=== PATIENT | female | born 1985 | race Caucasian/White ===

== ENCOUNTER 2016-04-23 09:09 | Emergency (ER) | payer OTHER ==
[2016-04-23 09:36] VITALS: BP 150/71
[2016-04-23] MEDS ORDERED: Ketorolac INJ* 30 MG/ML 1 ML VIAL IM ONE (10:01)
--- NOTE | 2016-04-23 10:06 | UC ---
Ear Complaint HPI - HPI Summary HPI Summary: Pt has worsening R ear pain for several days, in the last 1-2 days feels like R ear is filling with fluid and has nasal congestion. Pain radiates into (or from ) jaw and into R neck, R throat, and R anterior lymph node. Had fever last night 101+. Pt also has impacted wisdom teeth and they have been giving her pain , not sure if this pain is from her teeth. 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 - History of Current Complaint Chief Complaint: UCDentalProblem Stated Complaint: EAR PAIN Time Seen by Provider: 04/23/16 09:48 Hx Obtained From: Patient Hx Last Menstrual Period: 04/10/16 ?: No Onset/Duration: Gradual Onset, Lasting Days Severity Initially: Mild Severity Currently: Moderate Alleviating Factors: Nothing Associated Signs/Symptoms: Positive: URI Symptoms - Allergies/Home Medications Allergies/Adverse Reactions: Allergies Allergy/AdvReac Type Severity Reaction Status Date / Time No Known Allergies Allergy Verified 07/13/15 11:43 PMH/Surg Hx/FS Hx/Imm Hx Endocrine History Of: Denies: Diabetes, Thyroid Disease Cardiovascular History Of: Denies: Cardiac Disorders, Hypertension Respiratory History Of: Reports: Asthma Denies: COPD GI/ History Of: Denies: Ulcer Neurological History Of: Reports: Migraine - Surgical History Surgical History: None - Family History Known Family History: Positive: Diabetes - Social History Occupation: Employed Part-time Alcohol Use: Rare Substance Use Type: None Smoking Status (MU): Light Every Day Tobacco Smoker Type: Cigarettes Amount Used/How Often: 3-4 CIG/DAY Length of Time of Smoking/Using Tobacco: 15 years Have You Smoked in the Last Year: Yes Household Exposure Type: Cigarettes Review of Systems Constitutional: Fever Skin: Negative Eyes: Negative ENT: Dental Pain, Sore Throat, Ear Ache, Nasal Discharge Respiratory: Negative Cardiovascular: Negative Gastrointestinal: Negative Genitourinary: Negative Motor: Negative Neurovascular: Negative Musculoskeletal: Negative Neurological: Negative Psychological: Negative All Other Systems Reviewed And Are Negative: Yes Physical Exam Triage Information Reviewed: Yes Appearance: Well-Nourished, Pain Distress - mod Vital Signs: Initial Vital Signs Temp 98.8 F 04/23/16 09:31 Pulse 88 04/23/16 09:31 Resp 18 04/23/16 09:31 BP 150/71 04/23/16 09:31 Pulse Ox 100 04/23/16 09:31 Vital Signs Reviewed: Yes Eye Exam: Normal Eyes: Positive: Conjunctiva Clear ENT: Positive: Hearing grossly normal, Pharynx normal, Nasal congestion, Nasal drainage - pt is tearful, TMs normal - TMs flat, carrasquillo, intact bilat, LM present , Tonsillar swelling. Negative: TM bulging, TM dull, TM red, Tonsillar exudate Dental: Positive: Percussion Tenderness @ - #17 and #32 Neck: Positive: Supple, Tenderness @ - R tonsillar lymph node Respiratory Exam: Normal Respiratory: Positive: Chest non-tender, Lungs clear, Normal breath sounds, No respiratory distress, No accessory muscle use Cardiovascular Exam: Normal Cardiovascular: Positive: RRR, No Murmur Musculoskeletal Exam: Normal Neurological Exam: Normal Psychological Exam: Other - upset, in pain Skin Exam: Normal Ear Complaint Course/Dx - Differential Dx/Diagnosis Provider Diagnoses: tooth #32 pain. URI, likely viral Discharge - Discharge Plan Condition: Stable Disposition: HOME Prescriptions: ALPRAZolam TAB* [Xanax TAB*] 0.5 mg PO ONCE #3 tab MDD 1 HYDROcodone/ACETAMIN 5-325 MG* [Charlotte 5-325 TAB*] 1 - 2 tab PO Q8H PRN #10 tab MDD 6 PRN Reason: Pain Ketorolac TAB (NF) [Toradol TAB (NF)] 10 mg PO Q8H #21 tab Patient Education Materials: Upper Respiratory Infection (ED), Toothache (ED) Forms: *Work Release Referrals: Reji Damon MD [Doctor of Dental Medicine] - Additional Instructions: Please arrange for dental care as soon as possible -- if your face swells, come back right away so we can prescribe antibiotics. If your pain localizes more to the ear, please return for a recheck. If Dr. Damon does not take your insurance, you may need to call your Medicaid coordinator to find a provider.
== END 2016-04-23 10:45 | disposition home or self-care (01) ==
LOC: UCEAST 09:09
DX: J06.9 Acute upper respiratory infection, unspecified (principal); K08.89 Other specified disorders of teeth and supporting structures; F17.210 Nicotine dependence, cigarettes, uncomplicated
CPT/HCPCS: 87651; 96372; 99212; G0463; J1885

== ENCOUNTER 2016-05-23 12:42 | Emergency (ER) | payer OTHER ==
[2016-05-23 13:24] VITALS: BP 143/80
--- NOTE | 2016-05-23 14:46 | RAD ---
INDICATION: Trauma, superior cervical spine pain. COMPARISON: Comparison is made with a prior x-ray study from July 09, 2004. TECHNIQUE: 5 views of the cervical spine were obtained including lateral, oblique, AP, open-mouth odontoid views. FINDINGS: C1-C7 are visualized. The vertebra are in normal alignment. No prevertebral soft tissue swelling or fracture is seen. Disc spaces appear maintained. IMPRESSION: NO EVIDENCE FOR FRACTURE OR SUBLUXATION.
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
== END 2016-05-23 15:00 | disposition home or self-care (01) ==
LOC: UCEAST 12:42
DX: S16.1XXA Strain of muscle, fascia and tendon at neck level, initial encounter (principal); S76.012A Strain of muscle, fascia and tendon of left hip, initial encounter; S76.011A Strain of muscle, fascia and tendon of right hip, initial encounter; S29.012A Strain of muscle and tendon of back wall of thorax, initial encounter; V47.5XXA Car driver injured in collision with fixed or stationary object in traffic accident, initial encounter; Y93.89 Activity, other specified; Y92.9 Unspecified place or not applicable; F17.210 Nicotine dependence, cigarettes, uncomplicated
CPT/HCPCS: 72050; 99213; G0463

== ENCOUNTER 2017-12-30 17:38 | Inpatient (IN) | payer MEDICAID ==
[2017-12-30] MEDS ORDERED: Nalbuphine* 10 MG/ML 1 ML VIAL IV ONE (20:08)
[2017-12-30] MEDS ORDERED: Promethazine INJ(RESTRICTED)* 25 MG/ML 1 ML VIAL IV ONE (20:08)
[2017-12-31] MEDS ORDERED: Buprenorphine TAB* 8 MG PO SCH ×2 (11:00→13:00)
--- NOTE | 2017-12-31 12:42 | HP ---
General Information - Reason for Visit prodromal labor - General Information Maternal Age: 32 Grav: 6 Para: 2 SAB: 0 IEA: 3 Estimated Due Date: 12/26/17 Determined By: LMP Maternal Blood Type and Rh: A Positive - Results this Serology/RPR Result: Non-Reactive Rubella Result: Immune HBsAg Result: Negative HIV Result: Negative GBS Culture Result: Negative Past Medical History Delivery History: Hx Uncomplicated Vaginal Delivery Pertinent Past Medical History: See Records - tobacco use in , hx of drug abuse, hx [place], hx anxiety and depression, back pain Pertinent Past Surgical History: See Records Pertinent Family History: See Records - HTN, DM - Antepartal Records Antepartal Records: Reviewed, Complicated by: - tobacco use, +UDS in , anemia Review of Systems Constitutional: Uncomfortable CV Complaint: No Respiratory: Shortness of Breath: No Gastrointestinal: No Nausea/Vomiting, Normal Bowel Movement Genitourinary: No Dysuria, No Bleeding, No Leaking Fluid Musculoskeletal: Contractions, Pressure Neurological: No Headache, No Visual Changes Movement: Normal Exam Allergies/Adverse Reactions: Allergies No Known Allergies Allergy (Verified 05/23/16 13:14) Vital Signs 12/31/17 11:55 Respiratory 20 Rate - Measurements Height: 5 ft 2 in Weight: 187 lb Weight in lbs: 187.730566 Body Mass Index (BMI): 34.2 Pre- Weight: 164 lb Weight Gained This : 23 lbs and 0 ozs - Exam Breast: Breast Exam Deferred CVA: No CVA Tenderness Extremities: No Edema Heart: Normal Rhythm/Heart Sounds HEENT: No Significant Findings Lungs: Clear Bilaterally Rectal: Rectal Exam Deferred Reflexes: DTR 2+ Thyroid: No Thyromegaly - Abdominal Exam Abdomen Exam: Fundal Height Consistent with Dates - Ultrasound/Biophysical Profile Ultrasound Status: Not Done Targeted Exam Findings Cervical Exam: 5cm Effacement: 80% Station: -2 Presenting Part: Vertex Membrane Status: Intact Bleeding/Discharge: None EFM Findings - External Monitor Findings Baseline Heart Rate: 150 External Monitor Findings: Accelerations Present, No Pattern of Variable or Late Decelerations, Variability Moderate, Baseline Stable Contractions: Irregular, Moderate Assessment/Plan - Assessment 32 y.o. , prolonged early labor - Obstetrical Risk Factors Obstetrical Risk Factors: Tobacco Use, Psychosocial Issues - Plan Plan Comment: AROM - Date/Time of Admission Date of Admission: 12/31/17 Time of Admission: 10:00
[2017-12-31] MEDS: Buprenorphine TAB* 2 MG TAB.SL PO SCH ×2 (17:13→22:02)
[2017-12-31] MEDS ORDERED: Lidocaine 2% VISCOUS* 15 ML UDC ONE (17:57)
[2017-12-31] MEDS ORDERED: Glycerin ADULT SUPP PR PRN (18:33)
[2017-12-31] MEDS ORDERED: Witch Hazel PAD* JAR TOPICAL PRN (18:33)
[2017-12-31] MEDS ORDERED: Misoprostol TAB* 200 MCG PR ONE (18:33)
[2017-12-31] MEDS ORDERED: Dibucaine 1% 28.35 GM TUBE PR PRN (18:33)
[2017-12-31] MEDS ORDERED: OXYTOCIN* 10 UNITS/ML 1 ML VIAL IM ONE (18:33)
[2017-12-31] MEDS ORDERED: Witch Hazel PAD* JAR ONE (18:37)
[2017-12-31] MEDS ORDERED: OXYTOCIN* 10 UNITS/ML 1 ML VIAL ONE (18:37)
[2017-12-31] MEDS ORDERED: Misoprostol TAB* 200 MCG ONE (18:37)
[2017-12-31] MEDS ORDERED: Dibucaine 1% 28.35 GM TUBE ONE (18:37)
--- NOTE | 2017-12-31 18:44 | PN ---
Progress Note - Progress Note Date of Service: 12/31/17 - 13:00 SOAP: S: Pt reports irregular ctx, no increase in discomfort, desires augmentation. Discussed options and pt elects to continue with AROM. +FM, -LOF, -VB. O: BP: 131/66, P:77, O2:1100%. FHT: 135 bpm, +accels, -decels, moderate variability. AROM: clear, moderate amount cervix: 4.5/80/-2 A: 32 y.o. at 40w 5d EGA, prodromal labor. P: 1) AROM 2) ambulation 3) Reevaluate PRN
--- NOTE | 2017-12-31 18:47 | PN ---
Progress Note - Progress Note Date of Service: 12/31/17 - 16:00 Note: S: Pt reports contractions increasing in intensity, pt c/o pressure occassionally. Pt requests pain mgmt, declined epidural at this time, consents to nitrous. O: BP:118/73, P:76, NSt: 125 baseline, +accels, -decels, moderate variability. cervix: 7/80/-1 A: 32 y.o. at 40w5d EGA, active labor, VSS, Cat I NST P:1) anticipate vaginal delivery 2) nitrous oxide for pain mgmt, R/B reviewed
--- NOTE | 2017-12-31 18:55 | PROCNOTE ---
[facility] OB: Delivery Note - Delivery A Date of : 12/31/17 Time of : 18:03 Sex: Female Weight at : 7 lb 15 oz Score 1 Minute: 7 Score 5 Minutes: 9 Gestational Age in Weeks and Days at Delivery: 40 Weeks and 5 Days Delivery Method: Spontaneous Vaginal Labor: Spontaneous Did Patient attempt ?: N/A, No Previous Amniotic Fluid: Clear Estimated Blood Loss: 350 Anesthesia/Analgesia: Nitrous-Labor Delivered By: Meron Wagoner - Nursery Level of Nursery: Regular/Bedside - Perineum Perineal Injury: Abrasion Only - Not Repaired Perineal Repair: None - Events Delivery Events of Note: Pitocin Only After Delivery Delivery Events of Note Comment: nuchal cord x 1 - Additional Delivery Notes Additional Delivery Notes: Pt with onset of regular ctx at approx 15:30. Pt used nitrous oxide for pain relief and therapeutic support. After approx 2 hr 5min labor pt began involuntarily pushing. Examination revealed anterior lip that easily reduced. Pt pushed effectively for a total of 28 min delivering in hands and knees position a living female in OA position, restituting to BALJEET with delivery of shoulders and body with effective maternal effort.
[2017-12-31] MEDS: Ibuprofen TAB* 600 MG PO PRN (19:31)
[2017-12-31] MEDS ORDERED: Simethicone TAB* 80 MG TAB.CHEW PO SCH (21:00)
[2017-12-31] MEDS: Acetaminophen TAB* 325 MG PO PRN (21:58)
[2017-12-31] MEDS: Docusate CAP* 100 MG PO SCH (21:58)
[2018-01-01] MEDS: Ibuprofen TAB* 600 MG PO PRN ×3 (01:33→14:49)
[2018-01-01] MEDS: Acetaminophen TAB* 325 MG PO PRN ×2 (02:44→19:28)
[2018-01-01 07:44] LABS: ABS Basophils 0.1 10^3/ul (0-0.2); ABS Eosinophils 0.2 10^3/ul (0-0.6); ABS Monocytes 1.3 10^3/ul (0-0.8); ABS Neutrophils 13.4 10^3/ul (1.5-7.7); ABS Nucleated RBC 0 10^3/ul; Hematocrit 25 % (35-47); Hemoglobin 8.8 g/dl (12.0-16.0); Lymphocyte % 21.1 % (25-47); Mean Corpuscular HGB Conc 36 g/dl (31-36); Mean Corpuscular Hemoglobin 32 pg (27-31); Mean Corpuscular Volume 91 fL (80-97); Mean Platelet Volume 7.4 um3 (7.4-10.4); Nucleated Red Blood Cells % 0.1; Platelet Count 277 10^3/ul (150-450); Red Blood Count 2.71 10^6/ul (4.00-5.40); Red Cell Distribution Width 13 % (10.5-15); White Blood Count 18.9 10^3/ul (3.5-10.8)
[2018-01-01] MEDS: Nicotine PATCH 7 MG/24 HR* PATCH TRANSDERM SCH (08:00)
[2018-01-01] MEDS: Buprenorphine TAB* 2 MG TAB.SL PO SCH ×3 (09:01→23:31)
[2018-01-01] MEDS: Ferrous Gluconate TAB* 324 MG TAB PO SCH ×2 (09:03→23:31)
[2018-01-01] MEDS: Docusate CAP* 100 MG PO SCH ×3 (09:03→23:31)
[2018-01-01] MEDS ORDERED: Nicotine Patch Removal NOTE PATCH OFF SCH (21:00)
[2018-01-02] MEDS: Nicotine PATCH 7 MG/24 HR* PATCH TRANSDERM SCH (08:00)
[2018-01-02 08:06] VITALS: BP 108/55
[2018-01-02] MEDS: Ferrous Gluconate TAB* 324 MG TAB PO SCH (09:00)
[2018-01-02] MEDS: Ibuprofen TAB* 600 MG PO PRN ×2 (09:00→15:45)
[2018-01-02] MEDS: Docusate CAP* 100 MG PO SCH ×2 (09:00→15:44)
[2018-01-02] MEDS: Buprenorphine TAB* 2 MG TAB.SL PO SCH ×2 (09:13→12:46)
== END 2018-01-02 16:00 | disposition home or self-care (01) | DRG 560 ==
LOC: MCHOBOUT 17:38 → MCHOB 12-31 11:43
PROVIDERS: ADMIT Midwife; ATTEND Midwife
PROC: 10E0XZZ Delivery of Products of Conception, External Approach (ICD-10-PCS; principal; 2017-12-31)
PROC: 10907ZC Drainage of Amniotic Fluid, Therapeutic from Products of Conception, Via Natural or Artificial Opening (ICD-10-PCS; 2017-12-31)
DX: O48.0 Post-term pregnancy (principal); Z37.0 Single live birth; Z3A.40 40 weeks gestation of pregnancy; O63.0 Prolonged first stage (of labor); O99.334 Smoking (tobacco) complicating childbirth; F17.210 Nicotine dependence, cigarettes, uncomplicated; O99.344 Other mental disorders complicating childbirth; F41.8 Other specified anxiety disorders; O70.0 First degree perineal laceration during delivery; O90.81 Anemia of the puerperium; O99.02 Anemia complicating childbirth; D64.9 Anemia, unspecified; O69.89X0 Labor and delivery complicated by other cord complications, not applicable or unspecified
CPT/HCPCS: 36415; 80307; 85025; A9270-GY; J2590

== ENCOUNTER 2018-01-11 15:13 | Emergency (ER) | payer MEDICAID ==
[2018-01-11 16:26] LABS: Urine Appearance Cloudy; Urine Blood 3+ (Negative); Urine Color Yellow; Urine Ketones Negative (Negative); Urine Protein Negative (Negative); Urine Red Blood Cell 1+(3-5/hpf) (Absent); Urine Specific Gravity 1.013 (1.010-1.030); Urine Urobilinogen Negative (Negative); Urine White Blood Cell Trace(0-5/hpf) (Absent)
--- NOTE | 2018-01-11 16:33 | RAD ---
HISTORY: sob COMPARISONS: None VIEWS: 4: Frontal dual-energy and lateral views of the chest. FINDINGS: CARDIOMEDIASTINAL SILHOUETTE: The cardiomediastinal silhouette is normal. YO: The yo are normal. PLEURA: The costophrenic angles are sharp. No pleural abnormalities are noted. LUNG PARENCHYMA: The lungs are clear. ABDOMEN: The upper abdomen is clear. There is no subphrenic gas. BONES AND SOFT TISSUES: No bone or soft tissue abnormalities are noted. OTHER: None. IMPRESSION: NO ACTIVE CARDIOPULMONARY DISEASE.
[2018-01-11 16:34] LABS: ABS Basophils 0.1 10^3/ul (0-0.2); ABS Eosinophils 0.3 10^3/ul (0-0.6); ABS Lymphocytes 2.8 10^3/ul (1.0-4.8); ABS Monocytes 0.4 10^3/ul (0-0.8); ABS Neutrophils 3.8 10^3/ul (1.5-7.7); ABS Nucleated RBC 0 10^3/ul; Eosinophil % 3.7 % (0-6); Hematocrit 26 % (35-47); Lymphocyte % 38.5 % (25-47); Mean Corpuscular HGB Conc 35 g/dl (31-36); Mean Corpuscular Hemoglobin 32 pg (27-31); Mean Corpuscular Volume 92 fL (80-97); Mean Platelet Volume 6.6 um3 (7.4-10.4); Nucleated Red Blood Cells % 0.1; Platelet Count 418 10^3/ul (150-450); Red Blood Count 2.84 10^6/ul (4.00-5.40); Red Cell Distribution Width 14 % (10.5-15); White Blood Count 7.3 10^3/ul (3.5-10.8)
[2018-01-11] MEDS ORDERED: Cephalexin CAP* 500 MG PO ONE (16:36)
[2018-01-11 16:49] LABS: EGFR Non-African American 99.2 (>60)
[2018-01-11] MEDS ORDERED: Iohexol 350* (CONTRAST) 500 ML MDV IV ONE (17:16)
--- NOTE | 2018-01-11 17:36 | ED ---
Complex/Multi-Sys Presentation - HPI Summary HPI Summary: Patient is a 32 y/o F w/ c/o "swelling everywhere". She reports delivering her third baby eleven days ago. Since then she reports that she has been experiencing swelling at lower extremities bilaterally, abdomen, back and face. Toe pain, tingling, and numbness are also noted. She notes that walking produces SOB. Patient also reports intermittent chest pain and occasional cough , none of which are present in room at the time. She notes the presence of an abscess at the upper right part of the inside of her mouth that she is going to follow up with her dentist for as well. FMHx of blood clots, cardiac disease is denied. Mother is diabetic, father has COPD. On triage, pain is rated 4/10, elevating legs is noted to alleviate leg pain, nothing reported to aggravate. Home medications and allergies are reviewed. - History Of Current Complaint Chief Complaint: EDGeneral Time Seen by Provider: 01/11/18 15:48 Hx Obtained From: Patient Onset/Duration: Lasting Days - eleven, Still Present Timing: Constant, Intermittent, Lasting: - chest pain, SOB, cough Severity Currently: Moderate - 4/10 Aggravating Factor(s): nothing Alleviating Factor(s): elevating legs alleviates leg pain Associated Signs And Symptoms: Positive: SOB, Cough, Chest Pain, Other - swelling at lower extremities bilaterally, abdomen, back and face. Toe pain, tingling, and numbness - Allergies/Home Medications Allergies/Adverse Reactions: Allergies Allergy/AdvReac Type Severity Reaction Status Date / Time No Known Allergies Allergy Verified 01/11/18 15:22 PMH/Surg Hx/FS Hx/Imm Hx Endocrine/Hematology History: Denies: Hx Diabetes, Hx Thyroid Disease Cardiovascular History: Denies: Hx Hypertension Respiratory History: Reports: Hx Asthma Denies: Hx Chronic Obstructive Pulmonary Disease (COPD) GI History: Denies: Hx Ulcer History: Reports: Other Problems/Disorders - Ovarian cyst Neurological History: Reports: Hx Headaches, Hx Migraine Psychiatric History: Reports: Hx Anxiety, Hx Depression Infectious Disease History: No Infectious Disease History: Reports: 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 Denies: Hx Clostridium Difficile, Hx Hepatitis, Hx Human Immunodeficiency Virus (HIV), Hx Shingles, Hx Tuberculosis, Hx Known/Suspected VRE, Hx Known/ Suspected VRSA, History Other Infectious Disease, Traveled Outside the [place] in Last 30 Days - Family History Known Family History: Positive: Diabetes - mother , Respiratory Disease - father COPD , Other - No FMHx of blood clots Negative: Cardiac Disease - Social History Alcohol Use: None Hx Substance Use: No Substance Use Type: Reports: None Substance Use Comment - Amount & Last Used: subutex 8mg split qd; denies otherdrug for years Hx Tobacco Use: Yes Smoking Status (MU): Light Every Day Tobacco Smoker Type: Cigarettes Amount Used/How Often: 1/2 ppd Length of Time of Smoking/Using Tobacco: 15 years Have You Smoked in the Last Year: Yes Review of Systems Negative: Fever, Chills Negative: Erythema Negative: Sore Throat Positive: Chest Pain Positive: Shortness Of Breath - with walking , Cough Negative: Abdominal Pain, Vomiting, Nausea Negative: dysuria, hematuria Positive: Edema - swelling at lower extremities bilaterally, abdomen, back and face, Other - pain at toes . Negative: Myalgia Negative: Rash Neurological: Other - tingling at toes Positive: Numbness - toes All Other Systems Reviewed And Are Negative: Yes Physical Exam - Summary Physical Exam Summary: Constitutional: Well-developed, Well-nourished, Alert. (-) Distressed Skin: Warm, Dry HENT: Normocephalic; Atraumatic Eyes: Conjunctiva normal Neck: Musculoskeletal ROM normal neck. (-) JVD, (-) Stridor, (-) Tracheal deviation Cardio: Rhythm regular, rate normal, Heart sounds normal; Intact distal pulses; The pedal pulses are 2+ and symmetric. Radial pulses are 2+ and symmetric. (-) Murmur Pulmonary/Chest wall: Effort normal. (-) Respiratory distress, (-) Wheezes, (-) Rales Abd: Soft, (-) epigastric tenderness, (-) Distension, (-) Guarding, (-) Rebound Musculoskeletal: Edema at feet and face, no indication of pre-eclampsia Lymph: (-) Cervical adenopathy Neuro: Alert, Oriented x3 Psych: Mood and affect Normal Triage Information Reviewed: Yes Vital Signs On Initial Exam: Initial Vitals Temp Pulse Resp BP Pulse Ox 98.4 F 78 18 127/75 99 01/11/18 15:17 01/11/18 15:17 01/11/18 15:17 01/11/18 15:17 01/11/18 15:17 Vital Signs Reviewed: Yes Diagnostics - Vital Signs Vital Signs Temp Pulse Resp BP Pulse Ox 01/11/18 15:17 98.4 F 78 18 127/75 99 - Laboratory Lab Results: Lab Results 01/11/18 01/11/18 01/11/18 Range/Units 16:09 16:13 16:13 WBC 7.3 (3.5-10.8) 10^3/ul RBC 2.84 L (4.00-5.40) 10^6/ul Hgb 9.0 L (12.0-16.0) g/dl Hct 26 L (35-47) % MCV 92 (80-97) fL MCH 32 H (27-31) pg MCHC 35 (31-36) g/dl RDW 14 (10.5-15) % Plt Count 418 (150-450) 10^3/ul MPV 6.6 L (7.4-10.4) um3 Neut % (Auto) 52.0 (38-83) % Lymph % (Auto) 38.5 (25-47) % [place] % (Auto) 5.1 (0-7) % Eos % (Auto) 3.7 (0-6) % Baso % (Auto) 0.7 (0-2) % Absolute Neuts (auto) 3.8 (1.5-7.7) 10^3/ul Absolute Lymphs (auto) 2.8 (1.0-4.8) 10^3/ul Absolute Monos (auto) 0.4 (0-0.8) 10^3/ul Absolute Eos (auto) 0.3 (0-0.6) 10^3/ul Absolute Basos (auto) 0.1 (0-0.2) 10^3/ul Absolute Nucleated RBC 0 10^3/ul Nucleated RBC % 0.1 D-Dimer, Quantitative (Less Than 230) ng/mL Sodium 141 (135-145) mmol/L Potassium 3.9 (3.5-5.0) mmol/L Chloride 108 (101-111) mmol/L Carbon Dioxide 26 (22-32) mmol/L Anion Gap 7 (2-11) mmol/L BUN 14 (6-24) mg/dL Creatinine 0.69 (0.51-0.95) mg/dL Est GFR ( Amer) 120.1 (>60) Est GFR (Non-Af Amer) 99.2 (>60) BUN/Creatinine Ratio 20.3 H (8-20) Glucose 97 (70-100) mg/dL Lactic Acid (0.5-2.0) mmol/L Calcium 8.1 L (8.6-10.3) mg/dL Total Bilirubin 0.30 (0.2-1.0) mg/dL AST 16 (13-39) U/L ALT 26 (7-52) U/L Alkaline Phosphatase 113 H (34-104) U/L Troponin I 0.00 (<0.04) ng/mL Total Protein 5.4 L (6.4-8.9) g/dL Albumin 3.1 L (3.2-5.2) g/dL Globulin 2.3 (2-4) g/dL Albumin/Globulin Ratio 1.3 (1-3) Urine Color Yellow Urine Appearance Cloudy Urine pH 7.0 (5-9) Ur Specific [place] 1.013 (1.010-1.030) Urine Protein Negative (Negative) Urine Ketones Negative (Negative) Urine Blood 3+ A (Negative) Urine Nitrate Positive A (Negative) Urine Bilirubin Negative (Negative) Urine Urobilinogen Negative (Negative) Ur Leukocyte Esterase 2+ A (Negative) Urine WBC (Auto) Trace(0-5/hpf) (Absent) Urine RBC (Auto) 1+(3-5/hpf) A (Absent) Ur Squamous Epith Cells Present A (Absent) Urine Bacteria Absent (Absent) Urine Glucose Negative (Negative) 01/11/18 01/11/18 Range/Units 16:13 16:13 WBC (3.5-10.8) 10^3/ul RBC (4.00-5.40) 10^6/ul Hgb (12.0-16.0) g/dl Hct (35-47) % MCV (80-97) fL MCH (27-31) pg MCHC (31-36) g/dl RDW (10.5-15) % Plt Count (150-450) 10^3/ul MPV (7.4-10.4) um3 Neut % (Auto) (38-83) % Lymph % (Auto) (25-47) % [place] % (Auto) (0-7) % Eos % (Auto) (0-6) % Baso % (Auto) (0-2) % Absolute Neuts (auto) (1.5-7.7) 10^3/ul Absolute Lymphs (auto) (1.0-4.8) 10^3/ul Absolute Monos (auto) (0-0.8) 10^3/ul Absolute Eos (auto) (0-0.6) 10^3/ul Absolute Basos (auto) (0-0.2) 10^3/ul Absolute Nucleated RBC 10^3/ul Nucleated RBC % D-Dimer, Quantitative 586 H (Less Than 230) ng/mL Sodium (135-145) mmol/L Potassium (3.5-5.0) mmol/L Chloride (101-111) mmol/L Carbon Dioxide (22-32) mmol/L Anion Gap (2-11) mmol/L BUN (6-24) mg/dL Creatinine (0.51-0.95) mg/dL Est GFR ( Amer) (>60) Est GFR (Non-Af Amer) (>60) BUN/Creatinine Ratio (8-20) Glucose (70-100) mg/dL Lactic Acid 1.0 (0.5-2.0) mmol/L Calcium (8.6-10.3) mg/dL Total Bilirubin (0.2-1.0) mg/dL AST (13-39) U/L ALT (7-52) U/L Alkaline Phosphatase (34-104) U/L Troponin I (<0.04) ng/mL Total Protein (6.4-8.9) g/dL Albumin (3.2-5.2) g/dL Globulin (2-4) g/dL Albumin/Globulin Ratio (1-3) Urine Color Urine Appearance Urine pH (5-9) Ur Specific [place] (1.010-1.030) Urine Protein (Negative) Urine Ketones (Negative) Urine Blood (Negative) Urine Nitrate (Negative) Urine Bilirubin (Negative) Urine Urobilinogen (Negative) Ur Leukocyte Esterase (Negative) Urine WBC (Auto) (Absent) Urine RBC (Auto) (Absent) Ur Squamous Epith Cells (Absent) Urine Bacteria (Absent) Urine Glucose (Negative) Result Diagrams: 01/11/18 16:13 01/11/18 16:13 Lab Statement: Any lab studies that have been ordered have been reviewed, and results considered in the medical decision making process. - Radiology CXR Radiology Interpretation Completed By: Radiologist Summary of Radiographic Findings: no active cardiopulmonary disease, this report was reviewed by ed physician. - EKG 1527 Cardiac Rate: NL - rate of 66 bpm EKG Rhythm: Sinus Rhythm Summary of EKG Findings: no STEMI Complex Multi-Symp Course/Dx Course Of Treatment: Patient is a 32 y/o F w/ c/o "swelling everywhere". She reports delivering her third baby eleven days ago. Since then she reports that she has been experiencing swelling at lower extremities bilaterally, abdomen, back and face. Toe pain, tingling, and numbness are also noted. She notes that walking produces SOB. Patient also reports intermittent chest pain and occasional cough, none of which are present in room at the time. Physical exam showed edema at feet and face, no indication of pre-eclampsia. During ED course , patient was given Keflex 500 mg PO ONCE. Labs showed d-dimer 586, glucose 97, lactic acid 1, calcium 8.1, alk phos 113, trop 0. UA showed 3+ blood, positive nitrate, 2+ leukocyte esterase, RBC 1+, trace WBC, no bacteria, no glucose. CXR : no active cardiopulmonary disease. 1527 EKG showed sinus rhythm w/ 66 BPM, no STEMI. Patient will be signed out to Dr. Maldonado pending results of CTA chest/ thorax. Dx of UTI. 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 - Attestation Statements Document Initiated by Scribe: Yes Documenting Scribe: Oscar Méndez Provider For Whom Scribe is Documenting (Include Credential): Tayo Mcfarlane MD Scribe Attestation: IOscar , scribed for Tayo Mcfarlane MD on 01/11/18 at 2018.
--- NOTE | 2018-01-11 17:39 | ED ---
Discharge - Discharge Plan Prescriptions: Cephalexin CAP* [Keflex CAP*] 500 mg PO QID #20 cap Referrals: No Primary Care Phys,NOPCP [Primary Care Provider] - - Attestation Statements Document Initiated by Scribsimone: Yes
--- NOTE | 2018-01-11 18:34 | RAD ---
EXAM: CT Angiography Chest With Intravenous Contrast EXAM DATE/TIME: 01/11/2018 6:08 PM CLINICAL HISTORY: 32 years old, female; Signs and symptoms; Other: Sob/cp TECHNIQUE: Axial computed tomographic angiography images of the chest with intravenous contrast using CT angiography protocol. All CT scans at this facility use at least one of these dose optimization techniques: automated exposure control; mA and/or kV adjustment per patient size (includes targeted exams where dose is matched to clinical indication); or iterative reconstruction. Coronal and sagittal reformatted images were created and reviewed. MIP reconstructed images were created and reviewed. CONTRAST: 73 ml of BRPD075 administered intravenously. COMPARISON: No relevant prior studies available. FINDINGS: Pulmonary arteries: No visible acute pulmonary embolism. Aorta: No aortic dissection. 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 Lungs: Normal. No consolidation. No masses. Pleural space: Normal. No pneumothorax. No pleural effusion. Heart: Normal. No cardiomegaly. No pericardial effusion. Bones/joints: Unremarkable. No acute fracture. Soft tissues: Unremarkable. Lymph nodes: There is borderline mediastinal and hilar lymphadenopathy. IMPRESSION: 1. No visible acute pulmonary embolism. 2. No aortic dissection. To contact [facility] with a general question: [facility] - [phone] For direct physician to physician contact: Physician Hotline - [phone] [facility] ([facility] Facility ID #[id number])
--- NOTE | 2018-01-11 19:42 | ED ---
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 - Billing Disposition and Condition Condition: GOOD Disposition: Home
--- NOTE | 2018-01-11 20:03 | ED ---
Progress - Progress Note Progress Note: 19:00-Pt signed out from Dr. Tayo Pennington at 17:30hrs at the change of shift due to pending CT results - Results/Orders Results/Orders: Chest/Thoracic CTA IMPRESSION: 1. No visible acute pulmonary embolism. 2. No aortic dissection. The ED physician reviewed this radiology report. 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 - Attestation Statements Document Initiated by Scribe: Yes Documenting Scribe: Lilli Lowe Provider For Whom Scribe is Documenting (Include Credential): Dr. Sergey Maldonado MD Scribe Attestation: Lilli Zarco , scribed for Dr. Sergey Maldonado MD on 01/12/18 at 0637.
[2018-01-11 20:43] VITALS: BP 136/79
--- NOTE | 2018-01-14 07:51 | PN ---
Progress Note - Progress Note Date of Service: 01/11/18 Note: Pt. seen in ED 01/11 and dx with a UTI. She was started on Keflex. Urine culture today is growing >100k e coli susceptible to keflex. No change in treatment needed at this time.
== END 2018-01-11 20:46 | disposition home or self-care (01) ==
LOC: ED 15:13
DX: O86.20 Urinary tract infection following delivery, unspecified (principal); B96.20 Unspecified Escherichia coli [E. coli] as the cause of diseases classified elsewhere; O99.335 Smoking (tobacco) complicating the puerperium; F17.210 Nicotine dependence, cigarettes, uncomplicated
CPT/HCPCS: 36415; 71046; 71275; 80053; 81003; 81015; 83605; 84484; 85025; 85379; 87077; 87086; 87186; 93005; 96374; 99283; A9270-GY; Q9967

== ENCOUNTER 2019-07-07 09:03 | Emergency (ER) | payer OTHER ==
--- NOTE | 2019-07-07 09:31 | UC ---
Ear Complaint HPI - HPI Summary HPI Summary: Patient presents to urgent care for evaluation of left ear pain. Patient with a history of recurrent ear infections. Patient states he has been bothering her for approximately 1 month. Patient states yesterday she started developing pain in her left upper teeth area. Patient with poor dentition and is scheduled to have 11 or 12 teeth extracted once she is able to get into the dentist the first week of July. Patient states she's been taking Tylenol without improvement. Patient denies fevers or chills. Patient does have some seasonal allergies with some clear drainage from her nose. No fevers, chills, rash. Patient's taking Tylenol for pain. Patient is an opiate addiction recovery on Subutex. Patient states she is not . Patient's medications review this visit. Pt evaluated during COVID-19 pandemic- pt denies cough, sob, sore throat, fever , recent illness, contact with PUI/COVID + person - History of Current Complaint Stated Complaint: EAR PAIN Hx Obtained From: Patient Hx Last Menstrual Period: Apr 2016 - Allergies/Home Medications Allergies/Adverse Reactions: Allergies Allergy/AdvReac Type Severity Reaction Status Date / Time No Known Allergies Allergy Verified 07/07/19 09:36 Home Medications: Home Medications Subutex TAB* 4 mg PO BID 12/30/17 [History Confirmed 07/07/19] Acetaminophen TAB* [Tylenol TAB*] 650 mg PO Q4H PRN tab 01/02/18 [Rx Confirmed 07/07/19] Amoxicillin/Clavulanate TAB* [Augmentin TAB 875*] 875 mg PO BID #20 tab [Rx] Fluconazole [Diflucan 150 MG (NF)] 150 mg PO ONCE PRN #1 tab 07/07/19 [Rx] Lidocaine 2% VISCOUS* [Xylocaine 2% Viscous*] 10 ml SWISH SPIT Q4H PRN #1 btl [Rx] Loratadine 10 mg PO DAILY #30 tablet 07/07/19 [Rx] PMH/Surg Hx/FS Hx/Imm Hx Previously Healthy: Yes - recovery - opiate use disorder - Surgical History Surgical History: None - Family History Known Family History: Positive: Diabetes - mother , Respiratory Disease - father COPD , Other - No FMHx of blood clots Negative: Cardiac Disease - Social History Occupation: Works From/At Home Lives: With Family Alcohol Use: None Substance Use Type: None Substance Use Comment - Amount & Last Used: subutex 8mg split qd; denies otherdrug for years Smoking Status (MU): Light Every Day Tobacco Smoker Type: Cigarettes Amount Used/How Often: 1/2 ppd Length of Time of Smoking/Using Tobacco: 15 years Have You Smoked in the Last Year: Yes Household Exposure Type: Cigarettes Review of Systems All Other Systems Reviewed And Are Negative: Yes Constitutional: Positive: Negative Skin: Positive: Negative Eyes: Positive: Negative ENT: Positive: Dental Pain Respiratory: Positive: Negative Cardiovascular: Positive: Negative Gastrointestinal: Positive: Negative Genitourinary: Positive: Negative Is Patient Immunocompromised?: No Physical Exam - Summary Physical Exam Summary: Vital Signs Reviewed: Yes A+Ox3, mild discomfort Eyes: Conjunctiva Clear, [place]. EOM intact and full ENT: Hearing grossly normal right ear wnl, left ear with scant fluid, mild erythema, turbinates with clear discharge, mmoist, uvula midline, no exudate, no erythema no TMJ pain. no mastoid pain dental: poor dentitision throughout - multiple caries and broken teeth + TTP 14 - broken at gumline no bleeding, no fluctuance Neck: Positive: Supple. no submandibular LA Respiratory: Positive: No respiratory distress, No accessory muscle use + CTA throughout no w/r Cardiovascular: RRR nl s1, s2 no m/r CBT <2 sec abd soft + BS nt/nd no guarding, no distension Musculoskeletal Exam: GONZALEZ x 4 without difficulty Strength Intact, ROM Intact Neurological: Positive: Alert, + sensation throughout Psychological: Positive: Normal Response To examiner Skin: Positive: no rash, no ecchymosis Triage Information Reviewed: Yes Ear Complaint Course/Dx - Course Course Of Treatment: Patient presents to urgent care with progressive left ear pain as well as left upper dental pain. Patient with a history of ear infections as well as poor dentition. Patient has taken Tylenol with little relief. No fevers or chills. No nausea or vomiting. On exam vital signs reviewed. Patient does have some fluid in her left ear with some mild erythema. Patient also with poor dentition multiple contusions and tenderness to #14. Patient with some clear postnasal discharge consistent with seasonal allergies. Recommend Augmentin. Patient does have Peridex swish and special continue to use. Recommend loratadine. Also patient given a prescription for Diflucan as she says she gets yeast infections with antibiotics. Patient does have a dental appointment in the next 2 weeks. Strict return precautions discussed. Patient comfortable the plan. Of note, patient was given documentation of the prescriptions given to her today and she is on a monitoring program. - Differential Dx/Diagnosis Provider Diagnosis: Left serous otitis media, Pain, dental Discharge ED - Sign-Out/Discharge Documenting (check all that apply): Patient Departure All imaging exams completed and their final reports reviewed: No Studies - Discharge Plan Condition: Stable Disposition: HOME Prescriptions: Amoxicillin/Clavulanate TAB* [Augmentin TAB 875*] 875 mg PO BID #20 tab Fluconazole [Diflucan 150 MG (NF)] 150 mg PO ONCE PRN #1 tab PRN Reason: vaginal yeast infection Lidocaine 2% VISCOUS* [Xylocaine 2% Viscous*] 10 ml SWISH SPIT Q4H PRN #1 btl PRN Reason: dental pain Loratadine 10 mg PO DAILY #30 tablet Patient Education Materials: Toothache (ED), Serous Otitis Media (ED) Forms: *Gen. Provider Communication Referrals: Vale Frias SPEECH LANGUAGE PATHOLOGIST ASSISTANT [Primary Care Provider] - Additional Instructions: - Okay to alternate ibuprofen (Advil, Motrin) and Tylenol every 3 hours for pain. Take with food. Do NOT take for more than 4-5 days - Take antibiotics as prescribed until gone - Okay to swish and spot warm, salty water over the afftected tooth 2-3 times a day - Okay to use lidocaine gel to the affected tooth every 4- 6 hours for pain - It is recommended you take loratidine allergy medication as prescribed - Keep your follow-up dental appointment as scheduled the first week of July - You have been prescribed diflucan - okay to take if you develop a vaginal yeast infection at the end of the antibiotic course - Billing Disposition and Condition Condition: STABLE Disposition: Home
[2019-07-07 09:35] VITALS: BP 146/70
== END 2019-07-07 10:10 | disposition home or self-care (01) ==
LOC: UCEAST 09:03
DX: H65.92 Unspecified nonsuppurative otitis media, left ear (principal); K08.89 Other specified disorders of teeth and supporting structures; F17.210 Nicotine dependence, cigarettes, uncomplicated
CPT/HCPCS: 99212; G0463